=== PATIENT | male | born 1970 | race Caucasian/White ===

== ENCOUNTER 2018-01-07 09:05 | Observation (INO) | payer OTHER ==
[2018-01-07 09:35] LABS: HEMATOCRIT 48.4 % (39.0-53.0); HEMOGLOBIN 16.1 g/dL (13.0-17.5); MEAN CORPUSCULAR HEMOGLOBIN 29 pg (25-35); MEAN CORPUSCULAR HGB CONC 33 g/dL (31-37); MEAN CORPUSCULAR VOLUME 87 fL (79-100); PLATELET COUNT 286 x10^3/uL (140-400); RED BLOOD COUNT 5.57 x10^6/uL (4.30-5.70); WHITE BLOOD COUNT 6.4 x10^3/uL (4.0-11.0)
[2018-01-07 09:47] LABS: ANION GAP 9 (6-14); BLOOD UREA NITROGEN 18 mg/dL (8-26); CALCIUM 9.5 mg/dL (8.5-10.1); CARBON DIOXIDE 27 mmol/L (21-32); CHLORIDE 103 mmol/L (98-107); CREATININE 0.9 mg/dL (0.7-1.3); GFR 89.7; GLUCOSE 104 mg/dL (70-99); INR 0.9 (0.8-1.1); POTASSIUM 4.3 mmol/L (3.5-5.1); SODIUM 139 mmol/L (136-145)
[2018-01-07] MEDS ORDERED: IOHEXOL 300 MG/ML 100ML VIAL. ×2 (12:34)
[2018-01-07] MEDS ORDERED: LIDOCAINE 2% 20 ML VIAL. ×2 (12:35)
[2018-01-07] MEDS ORDERED: VERAPAMIL 5 MG/2 ML VIAL. ×2 (12:39)
[2018-01-07] MEDS ORDERED: HEPARIN for IV BOLUS 10,000 UNIT/10 ML VIAL. ×2 (12:39)
[2018-01-07] MEDS ORDERED: fentaNYL PF VIAL 100 MCG/2 ML VIAL ×2 (12:39)
[2018-01-07] MEDS ORDERED: NITROGLYCERIN 200 MCG/2 ML SYRINGE FOR CATH/VASC LAB. ×4 (12:39→13:46)
[2018-01-07] MEDS ORDERED: MIDAZOLAM HCL/PF 2 MG/2 ML VIAL. ×2 (12:39)
[2018-01-07] MEDS ORDERED: BIVALIRUDIN 250 MG VIAL. IV ×2 (13:29)
[2018-01-07] MEDS ORDERED: TICAGRELOR 90 MG TABLET. ×2 (13:46)
[2018-01-07] MEDS: IOHEXOL 300 MG/ML 100ML VIAL. IART ×2 (14:13)
[2018-01-07] MEDS: NITROGLYCERIN 200 MCG/2 ML SYRINGE FOR CATH/VASC LAB. IART ×2 (14:14)
[2018-01-07] MEDS: ASPIRIN CHEWABLE 81 MG TABLET. PO ×2 (14:14)
[2018-01-07] MEDS: NITROGLYCERIN 200 MCG/2 ML SYRINGE FOR CATH/VASC LAB. ICAR ×2 (14:14)
[2018-01-07] MEDS: fentaNYL PF VIAL 100 MCG/2 ML VIAL IV ×2 (14:15)
[2018-01-07] MEDS: MIDAZOLAM HCL/PF 2 MG/2 ML VIAL. IV ×2 (14:15)
[2018-01-07] MEDS: VERAPAMIL 5 MG/2 ML VIAL. IART ×2 (14:16)
[2018-01-07] MEDS: LIDOCAINE 2% 20 ML VIAL. IJ ×2 (14:16)
[2018-01-07] MEDS: BIVALIRUDIN 250 MG VIAL. IV ×2 (14:16)
[2018-01-07] MEDS: TICAGRELOR 90 MG TABLET. PO ×2 (14:17)
[2018-01-07] MEDS: HEPARIN for IV BOLUS 10,000 UNIT/10 ML VIAL. IART ×2 (14:17)
[2018-01-07] MEDS ORDERED: fentaNYL PF VIAL 100 MCG/2 ML VIAL IV ×2 (17:15)
[2018-01-07] MEDS ORDERED: NITROGLYCERIN SUBLINGUAL 0.4 MG BOTTLE OF 25. SL ×2 (17:15)
[2018-01-07] MEDS ORDERED: AMIODARONE 150 MG in IV DEXTROSE 5% 100 ML IV (17:15)
[2018-01-07] MEDS ORDERED: ATROPINE 0.5 MG/5 ML DISP.SYRIN. IV ×2 (17:15)
[2018-01-07] MEDS ORDERED: ACETAMINOPHEN 325 MG TABLET. PO ×2 (17:15)
[2018-01-07] MEDS ORDERED: 0.9 % SODIUM CHLORIDE 10 ML DISP.SYRIN. IV ×2 (17:15)
[2018-01-07] MEDS ORDERED: LIDOCAINE 2% 100 MG/5 ML SYRINGE. IV ×2 (17:15)
[2018-01-08 05:45] LABS: ALBUMIN 3.5 g/dL (3.4-5.0); ALK PHOS 53 U/L (46-116); ALT (SGPT) 55 U/L (16-63); ANION GAP 7 (6-14); AST (SGOT) 22 U/L (15-37); BLOOD UREA NITROGEN 17 mg/dL (8-26); CALCIUM 8.8 mg/dL (8.5-10.1); CARBON DIOXIDE 29 mmol/L (21-32); CHLORIDE 104 mmol/L (98-107); CHOLESTEROL 125 mg/dL (0-200); CREATININE 1.1 mg/dL (0.7-1.3); DIRECT BILIRUBIN 0.3 mg/dL (0.0-0.2); GFR 71.1; GLUCOSE 107 mg/dL (70-99); HDLC 22 mg/dL (40-60); LDLC 50 mg/dL (0-100); NON-HDL CHOLESTEROL 103 mg/dL (0-129); POTASSIUM 4.5 mmol/L (3.5-5.1); SODIUM 140 mmol/L (136-145); TOTAL BILIRUBIN 1.6 mg/dL (0.2-1.0); TOTAL PROTEIN 6.9 g/dL (6.4-8.2); TRIGLYCERIDES 264 mg/dL (0-150); VLDLC 53 mg/dL (0-40)
[2018-01-08 05:51] LABS: CHOLESTEROL/HDL RATIO 5.7
[2018-01-08] MEDS: TICAGRELOR 90 MG TABLET. PO ×2 (08:44)
[2018-01-08] MEDS: ASPIRIN ENTERIC COATED 81 MG TABLET.DR. PO ×2 (08:44)
== END 2018-01-08 11:30 | disposition home or self-care (01) ==
LOC: CCL 09:05 → 2 SOUTH 13:56
DX: I25.110 Atherosclerotic heart disease of native coronary artery with unstable angina pectoris (principal); I10 Essential (primary) hypertension; G47.33 Obstructive sleep apnea (adult) (pediatric)
CPT/HCPCS: 36415; 80048; 80061; 80076; 85027; 85610; 92928; 93458; 96374; 96375; 99152; 99153; C1725; C1769; C1874; C1887; G0378; G0379; J0583; J1644; J2250; J3010; J3490; Q9967

== ENCOUNTER → 2018-12-12 | Outpatient (CLI) | payer OTHER ==
[2018-01-08 07:00] VITALS: BP 123/82
[~2018-12-12] MED LIST: ASPI-482 PO; ATOR20TA58 PO; LISI-376 PO; LISI10TA2 PO; METO25TA4 PO; MULT1TAB52 PO; RANI150T2 PO; TICA90TA PO
--- NOTE | 2018-12-12 09:37 | CARD ---
MR#: [id number] Date of Study: 12/12/2018 Ordering Physician: CHIDI JUAREZ, Referring Physician: CHIDI JUAREZ, Tech: Elma Melendez APPROVED REPORT EXAM: Two-dimensional and M-mode echocardiogram with Doppler and color Doppler. Other Information Quality : ExcellentHR: 65bpm Rhythm : NSR INDICATION CAD RISK FACTORS Hypertension Hyperlipidemia 2D DIMENSIONS RVDd4.3 (2.9-3.5cm)Left Atrium(2D)3.9 (1.6-4.0cm) IVSd1.2 (0.7-1.1cm)Aortic Root(2D)3.3 (2.0-3.7cm) LVDd4.8 (3.9-5.9cm)LVOT Diameter2.4 (1.8-2.4cm) PWd1.0 (0.7-1.1cm)LVDs3.2 (2.5-4.0cm) FS (%) 34.3 %SV68.8 ml LVEF(%)63.2 (>50%) Aortic Valve AoV Peak Niall.120.9cm/sAoV VTI20.2cm AO Peak GR.5.8mmHgLVOT Peak Niall.108.4cm/s LVOT VTI 21.04cmAO Mean GR.3mmHg SUDHIR (VMAX)2.07us5YOI (VTI)4.61cm2 Mitral Valve MV E Gbwkvoen09.4cm/sMV DECEL QSHP668vd MV A Znxuryxm14.9cm/sMV HSC80xy E/A Ratio1.2MVA (PHT)2.45cm2 TDI E/Lateral E'6.7E/Medial E'7.4 Pulmonary Valve PV Peak Aonmkhbf771.0cm/sPV Peak Grad.7mmHg Tricuspid Valve TR P. Jtjmdgmy854km/sRAP LQJVFAMK8evGx TR Peak Gr.29koPzQFTZ73moDe Pulmonary Vein S1 Vttgzzeh33.3cm/sD2 Efhmnxut41.9cm/s LEFT VENTRICLE The left ventricle is normal size. There is borderline concentric left ventricular hypertrophy. The l eft ventricular systolic function is normal. The Ejection Fraction is 55-60%. There is normal LV segm ental wall motion. The left ventricular diastolic function and filling is normal for age. RIGHT VENTRICLE The right ventricle is normal size. There is normal right ventricular wall thickness. The right ventr icular systolic function is normal. ATRIA The left atrium size is normal. The right atrium size is normal. The interatrial septum is intact wit h no evidence for an atrial septal defect or patent foramen ovale as noted on 2-D or Doppler imaging. AORTIC VALVE The aortic valve is normal in structure and function. Doppler and Color Flow revealed no significant aortic regurgitation. There is no significant aortic valvular stenosis. MITRAL VALVE The mitral valve is normal in structure and function. There is no evidence of mitral valve prolapse. There is no mitral valve stenosis. Doppler and Color-flow revealed trace mitral regurgitation. TRICUSPID VALVE The tricuspid valve is normal in structure and function. Doppler and Color Flow revealed trace tricus pid regurgitation. There is no tricuspid valve stenosis. PULMONIC VALVE The pulmonary valve is normal in structure and function. Doppler and Color Flow revealed no pulmonic valvular regurgitation. GREAT VESSELS The aortic root is normal in size. The IVC was not well visualized. PERICARDIAL EFFUSION There is no evidence of significant pericardial effusion. Critical Notification Critical Value: No <Conclusion> The left ventricular systolic function is normal. The Ejection Fraction is 55-60%. There is normal LV segmental wall motion. Trace mitral regurgitation. Trace tricuspid regurgitation. There is no evidence of significant pericardial effusion. Signed by : Kvng Gunn, Electronically Approved : 12/12/2018 09:34:54
== END | disposition home or self-care (01) ==
LOC: ECHO 07:53
PROVIDERS: ATTEND Internal Medicine Cardiovascular Disease
DX: I25.10 Atherosclerotic heart disease of native coronary artery without angina pectoris (principal); I10 Essential (primary) hypertension; E78.5 Hyperlipidemia, unspecified; Z87.891 Personal history of nicotine dependence
CPT/HCPCS: 93306

== ENCOUNTER → 2021-12-15 | Outpatient (CLI) | payer OTHER ==
[2018-01-08 07:00] VITALS: BP 123/82
[~2021-12-15] MED LIST changes: +LISI10TA16 PO; -LISI10TA2 PO; +MULT-445 PO; -MULT1TAB52 PO
--- NOTE | 2021-12-15 13:04 | RAD ---
MR#: [id number] Date of Study: 12/15/2021 Ordering Physician: CHIDI JUAREZ, Referring Physician: EVAN ESCOBAR Tech: RT Lois (R) (N) APPROVED REPORT Test Type: Exercise Stress Nurse/Tech: Chula Guerrero RN Test Indications: CAD Cardiac History: Hypertension, Family history,2 stents 3 years ago Medications: See Electronic Medical Record Medical History: See Electronic Medical Record Resting ECG: SR Resting Heart Rate: 76 bpm Resting Blood Pressure: 121/69mmHg Pretest Chest Pain: No chest pain Nurse/Tech Notes S1,S2 and lungs clear to auscultation. Consent: The procedure was explained to the patient in lay terms. Informed consent was witnessed. Chong eout was entered into [email or web address]. History and Stress Test performed by EZ Jha Stress Symptoms No chest pain or symptoms. POST EXERCISE Reason for Termination: Reached target heart rate Target HR: Yes Max HR: 159 bpm 95% of Maximum Predicted HR: 167 bpm Exercise duration: 10:40 min:sec, 4 Stage Exercise capacity: 13.4METs Max Blood Pressure: 156/74mmHg Blood Pressure response to exercise: Normal blood pressure response during stress. Heart Rate response to exercise: WNL Chest Pain: No. Arrhythmia: No. ST Change: No. INTERPRETATION Stress EKG Conclusion: The resting EKG shows a sinus rhythm with nonspecific ST-T wave changes. The stress EKG shows no significant changes from baseline. No EKG evidence of stress-induced ischemia. Imaging Protocol IMAGE PROTOCOL: Rest Tc-99m/stress Tc-99m 1 day Rest: Stress: Viability: Radiopharm.Tc99m EwvwrhjeyHf16r Sestamibi Dose10.1mCi 33mCi Duration 15min. 15min. Img Date 12/15/2021 12/15/2021 Inj-Img Yefo96zvh. 60min. Rest Admin Site:IV - Right AntecubitalAdministrator:EZ Jha Stress Admin Site: IV - Right AntecubitalAdministrator: EZ Jha STRESS DATA End Diast. Vol.121.0mlAv. Heart Umtf232.0bpm End Syst. Vol.42.0mlCO Index BSA0.0L/min Myocardial Qncb555.0gEject. Nfkgvwyw32.0% Stress Rates Pk. Fill Rate3.54EDV/secLVtime Pk. Fill 167.90msec Pk. Empty Rate4.73ESV/secLVtime Pk. Nedzk696.91msec 1/3 Pk. Fill0.82EDV/sec Stress Scores Regional WT2.00Summed WT7.00 Regional WM0.00Summed WM3.00 LV Perfusion The stress scans showed no significant defects. The rest scans showed no significant defects. Nuclear imaging shows no reversible ischemia or infarct. Wall Motion Left ventricular systolic function is normal with an ejection fraction of 65%. LV Perf. Quant 17 Seg. SSS0.00 17 Seg. SRS0.00 17 Seg. SDS0.00 Stress Defect Extent (% LAD)0.00Rest Defect Extent (% LAD)0.00Rev. Defect Extent (% LAD)0.00 Stress Defect Extent (% LCX) 0.00Rest Defect Extent (% LCX)0.00Rev. Defect Extent (% LCX)0.00 Stress Defect Extent (% RCA)0.00Rest Defect Extent (% RCA)0.00Rev. Defect Extent (% RCA)0.00 Stress Defect Extent (% RAFIA)0.00Rest Defect Extent (% RAFIA)0.00Rev. Defect Extent (% RAFIA)0.00 Conclusion 1. Good exercise tolerance with the patient walking for 10 minutes and 40 seconds on a Shaun protocol . 2. Mildly abnormal baseline EKG but no EKG evidence of stress-induced ischemia. 3. Nuclear imaging shows no reversible ischemia or infarct. 4. Normal left ventricular systolic function with an ejection fraction of 65%. 5. Moderately low to low risk treadmill nuclear stress test. Signed by : Chicho Levy MD Electronically Approved : 12/15/2021 13:03:55
== END ==
LOC: NM 08:33
PROVIDERS: ATTEND Internal Medicine Cardiovascular Disease
DX: I25.10 Atherosclerotic heart disease of native coronary artery without angina pectoris (principal)
CPT/HCPCS: 78452; 93017; A9500